=== PATIENT | female | born 1990 | race Caucasian/White ===

== ENCOUNTER 2017-08-19 15:10 | Emergency (ER) | payer OTHER ==
[~2017-08-19] VITALS: Ht 165.1 cm; Wt 61.2 kg
[~2017-08-19 15:10] MED LIST: ALBU90OI INH; AZIT250 PO; AZIT500 PO; CODACE30 PO; ERYT500 PO; IBUP800 PO; PHENA200 PO; PRED20 PO; SULTRIDS PO; Verotin-Gr Cap1 EACH PO
[2017-08-19] MEDS ORDERED: Keflex500 MG PO (15:53)
[2017-08-19 16:01] LABS: Source, Urine Clean Catch
[2017-08-19 16:09] LABS: Bilirubin, Urine Neg (Neg); Blood, Urine 2+ (Neg); Glucose Qualitative, Urine Neg (Neg); Ketones, Urine 1+ (Neg); Leukocyte Esterase, Urine 1+ (Neg); Nitrite, Urine Neg (Neg); Protein, Urine 3+ (Neg); Specific Gravity, Urine 1.025 (1.003-1.022); Urobilinogen, Urine NORM (Normal)
[2017-08-19 16:21] LABS: Appearance, Urine Hazy (Clear); Color, Urine Yellow (P-Yellow)
[2017-08-19 16:23] LABS: Bacteria Few /hpf; Squamous Epithelial Cells Mod /hpf (Few)
== END 2017-08-19 16:11 | disposition home or self-care (01) ==
LOC: ER 15:10
PROVIDERS: Psychiatry & Neurology Psychiatry
DX: J02.9 Acute pharyngitis, unspecified (principal); F17.200 Nicotine dependence, unspecified, uncomplicated; Z88.0 Allergy status to penicillin
CPT/HCPCS: 81001; 81025; 87077; 87081; 87086; 87186; 87430; 99283

== ENCOUNTER → 2024-05-18 | Outpatient (CLI) | payer OTHER ==
[~2024-05-18] MED LIST changes: +Keflex500 MG PO
[2024-05-22 03:00] LABS: APTIMA MEDIA TYPE Unisex Swab; C. TRACHOMATIS BY TMA Negative (Negative); N. GONORRHOEAE BY TMA Negative (Negative); SPECIMEN SOURCE Cervical
== END ==
LOC: LAB SHORT 16:54 → LAB 16:54
PROVIDERS: Family Medicine
DX: Z12.4 Encounter for screening for malignant neoplasm of cervix (principal)
CPT/HCPCS: 87491; 87591